=== PATIENT | female | born 1975 ===

== ENCOUNTER 2020-08-31 02:33 | Emergency (ER) | payer SELFPAY ==
[~2020-08-31] VITALS: Ht 162.6 cm; Wt 86.4 kg
[~2020-08-31 02:33] MED LIST: CEFTIN 250250 MG/TAB PO; FLEXERIL 1010 MG/TAB PO; MOTRIN 400400 MG/TAB PO; NORCO 325 MG-51 TAB PO; PERCOCET 325 MG1 TA2 PO; TYLENOL 325MG325 MG PO; ULTRAM 50MG TAB50 MG PO
[2020-08-31 02:38] VITALS: TEMP 97.5
[2020-08-31 03:20] LABS: BASO # 0.1 (0.0-0.2); BASO % 0.4 % (0.0-2.0); EOS % 0.2 % (0-4.0); GRAN # 9.4 (1.4-6.5); HEMATOCRIT 37.7 % (37.0-47.0); HEMOGLOBIN 12.7 g/dl (12.5-16.0); LYMPH # 3.9 (1.2-3.4); LYMPH % 27.3 % (20.0-51.0); MEAN CELL VOLUME 91 fl (80.0-100.0); MEAN CORPUSCULAR HEMOGLOBIN 31 pg (27.0-31.0); MEAN CORPUSCULAR HGB CONC 34 g/dl (33.0-37.0); MEAN PLATELET VOLUME 10.4 fl (7.4-10.4); MONO # 0.8 (0.1-0.6); MONO % 5.7 % (1.7-9.3); PLATELET COUNT 371 K/mm3 (130-400); RED BLOOD COUNT 4.14 M/mm3 (4.10-5.30); REDCELL DISTRIBUTION WIDTH-CV 12.8 % (11.5-14.5)
[2020-08-31 03:27] LABS: COLLECTION METHOD CLEAN CATCH
[2020-08-31 03:31] LABS: ALBUMIN 4.3 gm/dL (3.5-5.0); BILIRUBIN,TOTAL 0.6 mg/dL (0.0-1.0); CALCIUM 9.1 mg/dL (8.4-10.2); CREATININE, serum 0.59 (0.52-1.25); POTASSIUM 3.7 mmol/L (3.4-5.0); TOTAL PROTEIN 7.4 gm/dL (6.4-8.2)
[2020-08-31 03:33] LABS: MUCOUS Present /lpf; PH 6 (5-8); URINE APPEARANCE Clear; URINE BACTERIA Rare /hpf; URINE BILIRUBIN Negative (NEGATIVE); URINE BLOOD Negative (NEGATIVE); URINE COLOR Straw; URINE GLUCOSE Negative (NEGATIVE); URINE KETONE Negative (NEGATIVE); URINE LEUKOCYTE ESTERASE Negative (NEGATIVE); URINE NITRATE Negative (NEGATIVE); URINE PROTEIN(semi-quant) Negative (NEGATIVE); URINE RBC 0-2 /hpf; URINE UROBILINOGEN Negative (NEGATIVE)
[2020-08-31 07:52] VITALS: BP 112/78; PULSE 91
== END 2020-08-31 07:56 | disposition home or self-care (01) ==
LOC: COL.ER 02:33
PROVIDERS: Family Medicine
DX: R10.31 Right lower quadrant pain (principal); R19.7 Diarrhea, unspecified; R30.9 Painful micturition, unspecified; Z32.02 Encounter for pregnancy test, result negative
CPT/HCPCS: J2270; J2405; Q9967

== ENCOUNTER 2021-10-07 03:17 | Emergency (ER) | payer SELFPAY ==
[~2021-10-07] VITALS: Ht 165.1 cm; Wt 79.1 kg
[2021-10-07 03:51] LABS: COLLECTION METHOD CLEAN CATCH
[2021-10-07 04:02] LABS: BASO # 0.1 K/mm3 (0.0-0.2); BASO % 0.5 % (0.0-2.0); EOS # 0.2 K/mm3 (0.0-0.7); EOS % 1.9 % (0.0-4.0); GRAN # 4.2 K/mm3 (1.4-6.5); GRAN % 37.3 % (42.2-75.2); HEMATOCRIT 42.9 % (37.0-47.0); HEMOGLOBIN 14.5 g/dl (12.5-16.0); LYMPH % 54.3 % (20.0-51.0); MEAN CELL VOLUME 89 fl (80.0-100.0); MEAN CORPUSCULAR HEMOGLOBIN 30 pg (27-31); MEAN CORPUSCULAR HGB CONC 34 g/dl (33.0-37.0); MEAN PLATELET VOLUME 10.8 fl (7.4-10.4); MONO # 0.6 K/mm3 (0.1-0.6); MONO % 5.7 % (1.7-9.3); PLATELET COUNT 351 K/mm3 (130-400); RED BLOOD COUNT 4.81 M/mm3 (4.10-5.30)
[2021-10-07 04:05] LABS: PH 5 (5-8); URINE APPEARANCE Hazy (CLEAR/HAZY); URINE BACTERIA None Seen /hpf (NONE SEEN); URINE BILIRUBIN Negative (NEGATIVE); URINE BLOOD Negative (NEGATIVE); URINE COLOR Yellow (YELLOW); URINE GLUCOSE Negative (NEGATIVE); URINE KETONE Negative (NEGATIVE); URINE LEUKOCYTE ESTERASE Negative (NEGATIVE); URINE NITRATE Negative (NEGATIVE); URINE PROTEIN(semi-quant) Negative (NEGATIVE); URINE RBC 0-2 /hpf (0-2); URINE UROBILINOGEN Negative (NEGATIVE)
[2021-10-07 04:16] LABS: BILIRUBIN,TOTAL 0.3 mg/dL (0.2-1.2); CALCIUM 8.7 mg/dL (8.4-10.2); CREATININE, serum 0.81 mg/dL (0.57-1.11); POTASSIUM 3.6 mmol/L (3.5-4.5); TOTAL PROTEIN 7.8 gm/dL (6.2-8.1)
[2021-10-07] MEDS ORDERED: ZOFRAN ODT4 MG PO (06:34)
[2021-10-07 06:48] VITALS: BP 116/92; PULSE 94; TEMP 98
== END 2021-10-07 06:48 | disposition home or self-care (01) ==
LOC: COL.ER 03:17
PROVIDERS: Emergency Medicine
DX: R05.9 Cough, unspecified (principal)
CPT/HCPCS: J2270; J2405; J7030; Q9967

== ENCOUNTER 2024-04-11 03:32 | Emergency (ER) | payer SELFPAY ==
[~2024-04-11] VITALS: Ht 165.1 cm; Wt 79.5 kg
[~2024-04-11 03:32] MED LIST changes: +CEPHALEXIN500 M1 PO; +ZOFRAN ODT4 MG PO
[2024-04-11 03:38] VITALS: BP 158/93; TEMP 97.1
[2024-04-11 03:47] LABS: COLLECTION METHOD CLEAN CATCH
[2024-04-11 03:57] LABS: PH 5.5 (5.0-8.5); URINE APPEARANCE CLEAR (CLEAR/HAZY); URINE BLOOD NEGATIVE (NEGATIVE); URINE COLOR YELLOW (YELLOW); URINE GLUCOSE NEGATIVE (NEGATIVE); URINE KETONE NEGATIVE (NEGATIVE); URINE NITRATE NEGATIVE (NEGATIVE); URINE PROTEIN(semi-quant) NEGATIVE (NEGATIVE); URINE UROBILINOGEN 0.2 E.U/dL (0.2-1.0)
[2024-04-11] MEDS ORDERED: CEPHALEXIN500 M1 PO (04:17)
[2024-04-11 04:26] VITALS: PULSE 76
[2024-04-11] MEDS ORDERED: Cephalexin 500 MG CAP PO ONE (04:30)
[2024-04-16] MEDS ORDERED: PYRIDIUM200 M1 PO (06:20)
[2024-04-16] MEDS ORDERED: BACTRIM DS 8001 TAB PO (06:20)
== END 2024-04-11 04:27 | disposition home or self-care (01) ==
LOC: COL.ER 03:32
PROVIDERS: Emergency Medicine
DX: N39.0 Urinary tract infection, site not specified (principal)